=== PATIENT | male | born 1980 | race Caucasian/White ===

== ENCOUNTER → 2025-03-26 | Outpatient (REF) | payer OTHER ==
[~2025-03-26] MED LIST: IOPAMIDOL 370 MG/ML 100 ML INFUS..BTL INJ ONE
== END ==
LOC: CT 16:05
PROVIDERS: ATTEND Nurse Practitioner Family
DX: R10.9 Unspecified abdominal pain (principal)
CPT/HCPCS: 74177; Q9967